=== PATIENT | female | born 1975 ===

== ENCOUNTER 2018-03-12 00:49 | Emergency (ER) | payer BC ==
[2018-03-12 01:28] VITALS: RESP 18
[2018-03-12 02:22] LABS: SQUAMOUS EPITHIAL 2 /hpf (0-5); URINE BACTERIA RARE (<OCC); URINE BILIRUBIN NEGATIVE (NEGATIVE); URINE CLARITY Clear (Clear); URINE COLOR Yellow (YELLOW); URINE GLUCOSE (UA) NORMAL (Normal); URINE LEUKOCYTE ESTERASE NEG Leu/uL (Negative); URINE PROTEIN 1+ mg/dL (NEGATIVE); URINE UROBILINOGEN NORMAL mg/dL (0.2-1.0)
[2018-03-12 02:28] LABS: BASO # 0.1 K/uL (0.0-0.2); BASO % 0.9 % (0.0-2.0); EOS % 0.4 % (0.0-4.0); HEMOGLOBIN 14.7 g/dL (11.0-16.0); LYMPH # 1.3 K/uL (1.0-4.3); LYMPH % 16.3 % (20.0-40.0); MEAN CELL VOLUME 87.2 fL (81.0-99.0); MEAN CORPUSCULAR HEMOGLOBIN 28.9 pg (27.0-31.0); MEAN CORPUSCULAR HGB CONC 33.1 g/dL (33.0-37.0); MEAN PLATELET VOLUME 8.3 fL (7.2-11.7); MONO # 0.4 K/uL (0.0-0.8); NEUT # 6.3 K/uL (1.8-7.0); NEUT % 77.4 % (50.0-75.0); NRBC % 0.1 % (0.0-2.0); RBC 5.09 Mil/uL (3.80-5.20); RED CELL DISTRIBUTION WIDTH 14.8 % (11.5-14.5); WHITE BLOOD COUNT 8.2 K/uL (4.8-10.8)
[2018-03-12 02:30] LABS: URINE BLOOD NEGATIVE (NEGATIVE)
[2018-03-12 02:38] LABS: BARBITURATES, UR NEGATIVE (NEGATIVE); BENZODIAZEPINES, UR NEGATIVE (NEGATIVE); OPIATES, UR NEGATIVE (NEGATIVE); PHENCYCLIDINE, UR NEGATIVE (NEGATIVE)
[2018-03-12 02:41] LABS: ALB/GLOB RATIO 1.3 (1.0-2.1); ALBUMIN 4.7 g/dL (3.5-5.0); ALT/SGPT 103 U/L (9-52); AST/SGOT 79 U/L (14-36); BLOOD UREA NITROGEN 7 mg/dL (7-17); CALCIUM 9.1 mg/dl (8.6-10.4); GFR NON-AFRICAN AMERICAN > 60
--- NOTE | 2018-03-12 03:21 | C.PDOC ---
History Of Present Illness 43 y/o female brought in by EMS for anxiety attack. Patient states she is an alcoholic and has been drinking heavily for 2 days. Since then she developed decreased appetite and has been feeling nauseous. Patient states she forced her self to vomit. She then vomited a lot twice and after, started to become concerned and anxious. She developed tingling in her hands, tightness in her chest, and her hands felt shaky. Patient then called EMS. On arrival to the ED she appears anxious but reports feeling better. Patient is also requesting detox. She denies any SI/HI. Denies any abdominal pain, chest pain, or SOB at this time. Time Seen by Provider: 03/12/18 01:31 Chief Complaint (Nursing): Anxiety History Per: Patient History/Exam Limitations: no limitations Onset/Duration Of Symptoms: Hrs Current Symptoms Are (Timing): Better Suicide/Self Injury Attempted (Context): None Modifying Factor(s): Alcohol Associated Symptoms: Anxiety. denies: Suicidal Thoughts, Suicidal Plan Additional History Per: EMS Past Medical History Reviewed: Historical Data, Nursing Documentation, Vital Signs Vital Signs: Last Vital Signs Temp 98.2 F 03/12/18 01:07 Pulse 87 03/12/18 01:07 Resp 18 03/12/18 01:07 BP 149/97 H 03/12/18 01:07 Pulse Ox 100 03/12/18 01:07 Surgical History: Family History: States: Unknown Family Hx - Social History Hx Alcohol Use: Yes Hx Substance Use: Yes (Marijuana) - Immunization History Hx Tetanus Toxoid Vaccination: No Hx Influenza Vaccination: No Hx Pneumococcal Vaccination: No Review Of Systems Constitutional: Negative for: Fever, Sweats Eyes: Negative for: Vision Change Cardiovascular: Negative for: Chest Pain, Palpitations Respiratory: Negative for: Shortness of Breath Gastrointestinal: Positive for: Nausea, Vomiting. Negative for: Abdominal Pain Neurological: Negative for: Weakness, Dizziness Psych: Positive for: Anxiety. Negative for: Suicidal ideation (or homicidal) Physical Exam - Physical Exam Appears: Non-toxic, No Acute Distress, Other (Appears anxious, crying) Skin: Warm, Dry Head: Atraumatic, Normacephalic Eye(s): bilateral: Normal Inspection, PERRL, EOMI Oral Mucosa: Moist Neck: Normal ROM Chest: Symmetrical Cardiovascular: Rhythm Regular, No Murmur Respiratory: Normal Breath Sounds, No Rales, No Rhonchi, No Wheezing Gastrointestinal/Abdominal: Soft, No Tenderness, No Distention Extremity: Normal ROM, Other (mild tremors of hands) Extremity: Bilateral: Atraumatic, Normal Color And Temperature Neurological/Psych: Oriented x3 ED Course And Treatment - Laboratory Results Result Diagrams: 03/12/18 02:26 03/12/18 02:26 Lab Results: Total Bilirubin 0.8 mg/dL (0.2-1.3) 03/12/18 02:26 AST 79 U/L (14-36) H 03/12/18 02:26 ALT 103 U/L (9-52) H 03/12/18 02:26 Alkaline Phosphatase 131 U/L (38-126) H 03/12/18 02:26 Total Protein 8.2 g/dL (6.3-8.3) 03/12/18 02:26 Albumin 4.7 g/dL (3.5-5.0) 03/12/18 02:26 Globulin 3.5 gm/dL (2.2-3.9) 03/12/18 02:26 Albumin/Globulin Ratio 1.3 (1.0-2.1) 03/12/18 02:26 Urine Color Yellow (YELLOW) 03/12/18 02:16 Urine Clarity Clear (Clear) 03/12/18 02:16 Urine pH 6.0 (5.0-8.0) 03/12/18 02:16 Ur Specific [place] 1.006 (1.003-1.030) 03/12/18 02:16 Urine Protein 1+ mg/dL (NEGATIVE) H 03/12/18 02:16 Urine Glucose (UA) Normal mg/dL (Normal) 03/12/18 02:16 Urine Ketones Trace mg/dL (NEGATIVE) 03/12/18 02:16 Urine Blood Negative (NEGATIVE) 03/12/18 02:16 Urine Nitrate Negative (NEGATIVE) 03/12/18 02:16 Urine Bilirubin Negative (NEGATIVE) 03/12/18 02:16 Urine Urobilinogen Normal mg/dL (0.2-1.0) 03/12/18 02:16 Ur Leukocyte Esterase Neg [place]/uL (Negative) 03/12/18 02:16 Urine WBC (Auto) 1 /hpf (0-5) 03/12/18 02:16 Urine RBC (Auto) 1 /hpf (0-3) 03/12/18 02:16 Ur Squamous Epith Cells 2 /hpf (0-5) 03/12/18 02:16 Urine Bacteria Rare (<OCC) 03/12/18 02:16 O2 Sat by Pulse Oximetry: 100 (RA) Pulse Ox Interpretation: Normal Progress Note: Labs ordered for medical clearance. Spoke to crisis counselor, who evaluated pt. Patient is medically cleared for detox. Pt wwas evaluated by Crisis, then decided to refuse inpatient detox prefers outpatient detox because of her job. On re-evaluation patient confirms her refusal for detox and is requesting to be discharged home. Patient is no longer anxious, denies nausea, abdominal pain or chest tightness. Pt appears less anxious and appears in NAD, no signs of acute alcohol withdrawal. Outpatient resources provided. Disposition Counseled Patient/Family Regarding: Diagnosis, Need For Followup, Rx Given - Disposition Referrals: [facility] [Outside] Disposition: HOME/ ROUTINE Disposition Time: 03:18 Condition: STABLE Additional Instructions: Please follow up with PMD Please set up appointment for outpatient detox as instructed by CRisis Take medications as directed Return to ER if worse Instructions: Alcohol Use - When Is Drinking a Problem?, Anxiety, Adult (DC) Forms: [employer] (Hebrew) - Clinical Impression Clinical Impression: Anxiety, Alcoholic gastritis, History of alcohol abuse - PA / [employer] / Resident Statement MD/DO has reviewed & agrees with the documentation as recorded. - Scribe Statement The provider has reviewed the documentation as recorded by the Bettyeibdion Skelton All medical record entries made by the Scribe were at my direction and personally dictated by me. I have reviewed the chart and agree that the record accurately reflects my personal performance of the history, physical exam, medical decision making, and the department course for this patient. I have also personally directed, reviewed, and agree with the discharge instructions and disposition.
[2018-03-12 03:46] VITALS: BP 150/90; PULSE 88; TEMP 98.3
[2018-03-12 03:54] VITALS: O2SAT 100
== END 2018-03-12 03:40 | disposition home or self-care (01) ==
LOC: C.ER 00:49
DX: F41.9 Anxiety disorder, unspecified (principal); K29.20 Alcoholic gastritis without bleeding
CPT/HCPCS: 80053; 81001; 83735; 84100; 85025; 99284; G0480

== ENCOUNTER 2018-03-12 04:06 | Inpatient (IN) | payer BC ==
--- NOTE | 2018-03-12 04:58 | C.PDOC ---
History Of Present Illness 43 yr old female w/ hx of etoh abuse, fibroidectomy, c section p/w anxiety. Pt notes that she had just been discharged from [facility] approximately an hour prior an was walking home when she felt extreme anxiety like something would happen to her at home. She denies any chest pain or shortness of breath but notes anxiety. No abdominal pain. No GI or complaints. No rash or fall. No other complaints Time Seen by Provider: 03/12/18 04:15 Chief Complaint (Nursing): Substance Abuse Past Medical History Vital Signs: Last Vital Signs Temp 97.7 F 03/12/18 04:30 Pulse 98 H 03/12/18 04:30 Resp 18 03/12/18 04:30 BP 149/93 H 03/12/18 04:30 Pulse Ox 98 03/12/18 04:30 Surgical History: Family History: States: Unknown Family Hx - Social History Hx Alcohol Use: Yes Hx Substance Use: Yes (Marijuana) - Immunization History Hx Tetanus Toxoid Vaccination: No Hx Influenza Vaccination: No Hx Pneumococcal Vaccination: No Review Of Systems Constitutional: Negative for: Fever, Chills, Weakness, Malaise Eyes: Negative for: Pain, Vision Change ENT: Negative for: Ear Pain, Ear Discharge, Nose Congestion, Mouth Swelling Cardiovascular: Negative for: Chest Pain, Palpitations Respiratory: Negative for: Cough, Shortness of Breath, SOB with Excertion Gastrointestinal: Positive for: Vomiting (earlier, now resolved). Negative for: Nausea, Melena Genitourinary: Negative for: Dysuria, Frequency Musculoskeletal: Negative for: Neck Pain Skin: Negative for: Rash, Lesions Neurological: Negative for: Weakness, Numbness, Confusion, Seizures Psych: Positive for: Anxiety Physical Exam - Physical Exam Appears: Well, Non-toxic Skin: Normal Color, Warm, Dry Head: Atraumatic, Normacephalic Eye(s): bilateral: Normal Inspection, PERRL, EOMI Nose: Normal Throat: Normal Neck: Normal, Supple, Other (no meningeal signs) Cardiovascular: Rhythm Regular Respiratory: Normal Breath Sounds Gastrointestinal/Abdominal: Normal Exam Back: Normal Inspection, No CVA Tenderness, No Vertebral Tenderness Extremity: Normal ROM, No Tenderness Neurological/Psych: Oriented x3, Normal Speech, Normal Cognition, Normal Cranial Nerves, No Cerebellar Signs, Normal Motor, Normal Sensation Gait: Steady Extremity: Right: No Drift, Left: No Drift, Upper: No Drift, Lower: No Drift ED Course And Treatment O2 Sat by Pulse Oximetry: 98 Medical Decision Making Medical Decision Makin yr old female p/w anxiety. No SI or HI. Previously seen here, medically cleared for detox and pt d/c after refusing detox. Pt states she is feeling anxious, and would like to be evaluated for it. She denies any current nausea or vomiting. She also notes minor parathesias to b/l fingertips but no FND. Neuro exam unremarkable. Likely anxiety. Medically clear Pending crisis eval. 1748 per crisis we are to admit to Dr. Scherer for anxiety pt in NAD, agreeable to plan no signs of withdrawal. abd remains non-ttp. No cp or sob. Disposition - Disposition Disposition Time: 05:48 Condition: GOOD Forms: [facility] (Kyrgyz) - Clinical Impression Clinical Impression: Anxiety
--- NOTE | 2018-03-12 07:59 | PCM.BM ---
<Vika Thomas - Last Filed: 03/12/18 08:02> Treatment Plan Problems - Problems identified on initial assessmt thought alteration Date Initiated: 03/12/18 Time Initiated: 06:30 Date resolved: 03/12/18 Assessment reference: NA Status: Active fear to the unknown Date Initiated: 03/12/18 Time Initiated: 06:30 Date resolved: 03/12/18 Assessment reference: NA Status: Active stress related to work Date Initiated: 03/12/18 Time Initiated: 06:30 Date resolved: 03/12/18 Assessment reference: NA Status: Active Treatment assets and liabiliti Patient Assests: cooperative, resourceful, ADL independent - Milieu Protocol Maintain good personal hygiene: daily Encourage regular showers, daily Remind patient to perform daily oral care, daily Assist patient to perform ADL's Maintain personal safety: every shift Educate patient to report safety concerns to staff, every shift Monitor environment for contraband/sharps Medication safety: Monitor for expected outcome, potential side effects: every shift, Assess barriers to learning: every shift, Assess readiness for medication education: every shift <Milady Francisco - Last Filed: 03/12/18 11:58> Treatment Plan Problems - Problems identified on initial assessmt thought alteration Date Initiated: 03/12/18 Time Initiated: 06:30 Date resolved: 03/12/18 Assessment reference: NA Status: Active fear to the unknown Date Initiated: 03/12/18 Time Initiated: 06:30 Date resolved: 03/12/18 Assessment reference: NA Status: Active stress related to work Date Initiated: 03/12/18 Time Initiated: 06:30 Date resolved: 03/12/18 Assessment reference: NA Status: Active stress realted to work Date Initiated: 03/12/18 Time Initiated: 06:30 Date resolved: 03/12/18 Assessment reference: NA Status: Active Family Contact Family involvement: Famliy/SO not involved - Goals for Treatment Patient goals for treatment: "I need a therapist." Discharge/Continuing Care - Education Needs Education Needs: Patient Medication, Patient Coping Skills - Discharge Discharge Criteria: Tolerates medication w/o severe side effects, Reduction of target symptoms Discharge to:: Home - Treatment Team Participation Discussed with Family/SO: No Was Patient/Family/SO present at Treatment Team Meeting: Yes
[2018-03-12 09:30] VITALS: O2SAT 98
--- NOTE | 2018-03-12 09:31 | PCM.PSYCH ---
Initial Psychiatric Evaluation - Initial Psychiatric Evaluation Type of Admission: Voluntary Legal Status: Capacity Chief Complaint (in patient's own words): I was feeling increasingly anxious and depressed. 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 with depressed mood and panic attacks. Patient denies any past history of any inpatient psychiatric hospitalizations. She also denies any past history of any follow-up with any psychiatrist. However she reports history of follow-up with a therapist during her school years for anxiety and depression. Patient remained a poor historian. She was superficially cooperative but guarded about the details. She was depressed, tearful and anxious throughout the interview. She reports that her 15 years old son is abusing drugs and she is worried about him. She also reports that she had an altercation with him and he texted her to go and kill yourself, that made her increasingly depressed and anxious and she consumed a lot of drinks and came to the hospital, she developed passive suicidal ideation that she can do something crazy. Patient reports a long history of drinking. She reports that she relapsed almost 6 months ago. Besides has son, she also reports other stressors, including, issues at work, recent migration from [place], and drinking at the [employer] house friend's green party, which can put her in trouble. Patient reports that she got drunk at a "house friends green party, whosent her to the ED. However she was discharged from the ED, she went back but had a severe panic attack, so she came back to the ED. She reported increasingly depressed and anxious mood, at times feelings of hopelessness and helplessness, poor sleep and poor appetite. She also reports racing thoughts, flight of ideas, worsening of irritability and agitation. She appears somewhat paranoid at people are judging her however she denies any auditory hallucinations. She reports some withdrawal symptoms from drinking including sweating, headaches, anxiety however she denies any other drugs. Past medical history HTN Past Psychiatric History - Past Psychiatric History Previous Treatment History: None Pertinent Medical Hx (Current Medical&Sleep Prob, Allergies): Allergies Allergy/AdvReac Type Severity Reaction Status Date / Time No Known Allergies Allergy Verified 03/12/18 04:45 No Known Home Med 03/12/18 Review of Systems - Review of Systems All systems: reviewed and no additional remarkable complaints except - Psychiatric Psychiatric: Anxiety, Depression, Irritability, Panic Attacks, Suicidal Ideation Mental Status Examination - Personal Presentation Personal Presentation: Looks stated age - Affect Affect: Constricted, Depressed - Motor Activity Motor Activity: Psychomotor Agitation - Reliability in Providing Information Reliability in Providing Information: Poor, due to altered mood - Speech Speech: Organized - Mood Mood: Depressed, Anxious - Formal Thought Process Formal Thought Process: No Impairment - Obsessions/Compulsions Obsessions: No Compulsions: No - Cognitive Functions Orientation: Person, Place, Situation, Time Sensorium: Alert Attention/Concentration: Attentive Abstract Thinking: Palmer Estimate of Intelligence: Below average Judgement: Imparied, as evidence by: Poor judgement, Imparied, as evidence by: Lack of insight into illness - Risk Risk: Withdrawal, Diminished functioning - Limitations Limitations: Living alone DSM 5 DX - DSM 5 DSM 5 Diagnosis: Bipolar disorder mixed severe with psychotic features Alcohol use disorder severe Alcohol withdrawal - Recommended/Plan of Treatment Treatment Recommendations and Plan of Treatment: Bipolar disorder mixed severe with psychotic features Alcohol use disorder severe Alcohol withdrawal CBT Psychoeducation Supportive therapy and group therapy Trazodone for insomnia Neurontin for augmentation Ativan for alcohol withdrawal symptoms [place] as a mood stabilizer - Smoking Cessation Smoking Cessation Initiated: No
--- NOTE | 2018-03-13 12:36 | PCM.PYCHPN ---
Psychiatric Progress Note - Psychiatric Progress Note Patient seen today, length of contact: 15 min Patient Chief Complaint: I was feeling increasingly anxious and depressed. Problems Identified/Issues Discussed: Patient was seen and evaluated, chart reviewed and discussed the staff. Patient reports improvement in her mood and reports some improvement in the feelings of hopelessness and helplessness. She also reports some improvement in the racing thoughts, irritability and agitation. She denies any auditory or visual hallucinations. She is taking medication but denies any side effects Symptoms are improving gradually to stay longer for further stabilization. Supportive therapy was given. Medication Change: Yes Medical Record Reviewed: Yes Mental Status Examination - Cognitive Function Orientation: Person, Place, Situation, Time Memory: Intact Attention: WNL Concentration: Poor Association: WNL Fund of Knowledge: Poor - Mood Mood: Depressed, Anxious - Affect Affect: Constricted, Depressed - Formal Thought Process Formal Thought Process: No Impairment - Suicidal Ideation Suicidal Ideation: No - Homicidal Ideation Homicidal Ideation: No Goal/Treatment Plan - Goal/Treatment Plan Need for Continued Stay: Remain at risks for inpatient hospitalization Progress Toward Problem(s) and Goals/Treatment Plan: Bipolar disorder mixed severe with psychotic features Alcohol use disorder severe Alcohol withdrawal CBT Psychoeducation Supportive therapy and group therapy Trazodone for insomnia Neurontin for augmentation Ativan for alcohol withdrawal symptoms [place] as a mood stabilizer - Smoking Cessation Smoking Cessation Initiated: No
[2018-03-14 06:34] VITALS: BP 118/76; PULSE 78; RESP 16; TEMP 97.5
--- NOTE | 2018-03-14 10:14 | PCM.PYCHDC ---
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 Patient denies any past history of any inpatient psychiatric hospitalizations. She also denies any past history of any follow-up with any psychiatrist. However she reports history of follow-up with a therapist during her school years for anxiety and depression. Patient remained a poor historian. She was superficially cooperative but guarded about the details. She was depressed, tearful and anxious throughout the interview. She reports that her 15 years old son is abusing drugs and she is worried about him. She also reports that she had an altercation with him and he texted her to go and kill yourself, that made her increasingly depressed and anxious and she consumed a lot of drinks and came to the hospital, she developed passive suicidal ideation that she can do something crazy. Patient reports a long history of drinking. She reports that she relapsed almost 6 months ago. Besides has son, she also reports other stressors, including, issues at work, recent migration from [place], and drinking at the [employer] friend[employer], which can put her in trouble. Patient reports that she got drunk at a "[employer] friends democrat, whosent her to the ED. However she was discharged from the ED, she went back but had a severe panic attack, so she came back to the ED. She reported increasingly depressed and anxious mood, at times feelings of hopelessness and helplessness, poor sleep and poor appetite. She also reports racing thoughts, flight of ideas, worsening of irritability and agitation. She appears somewhat paranoid at people are judging her however she denies any auditory hallucinations. She reports some withdrawal symptoms from drinking including sweating, headaches, anxiety however she denies any other drugs. Consultations:: List each consultation separately and include: 1. Reason for request. 2. Findings. 3. Follow-up Summary of Hospital Course include:: 1. Description of specific treatment plan utilized for patients during their course of treatmen. 2. Summarize the time- course for resolution of acute symptoms and/or regressed behaviors. 3. Describe issues identified and worked on during hospitalization. 4. Describe medication utilized. 5. Describe medical problems identified and treated. 6. 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 Patient denies any past history of any inpatient psychiatric hospitalizations. She also denies any past history of any follow-up with any psychiatrist. However she reports history of follow-up with a therapist during her school years for anxiety and depression. Patient remained a poor historian. She was superficially cooperative but guarded about the details. She was depressed, tearful and anxious throughout the interview. She reports that her 15 years old son is abusing drugs and she is worried about him. She also reports that she had an altercation with him and he texted her to go and kill yourself, that made her increasingly depressed and anxious and she consumed a lot of drinks and came to the hospital, she developed passive suicidal ideation that she can do something crazy. Patient reports a long history of drinking. She reports that she relapsed almost 6 months ago. Besides has son, she also reports other stressors, including, issues at work, recent migration from [place], and drinking at the [employer] friend[employer] democr[employer], which can put her in trouble. Patient reports that she got drunk at a "[employer] friends democr[employer], whosent her to the ED. However she was discharged from the ED, she went back but had a severe panic attack, so she came back to the ED. She reported increasingly depressed and anxious mood, at times feelings of hopelessness and helplessness, poor sleep and poor appetite. She also reports racing thoughts, flight of ideas, worsening of irritability and agitation. She appears somewhat paranoid at people are judging her however she denies any auditory hallucinations. She reports some withdrawal symptoms from drinking including sweating, headaches, anxiety however she denies any other drugs. Past medical history HTN - Final Diagnosis (DSM 5) Condition upon Discharge: GOOD DSM 5: Bipolar disorder mixed severe with psychotic features Alcohol use disorder severe Alcohol withdrawal Disposition: HOME/ ROUTINE Follow-up Treatment Plan: Bipolar disorder mixed severe with psychotic features Alcohol use disorder severe Alcohol withdrawal CBT Psychoeducation Supportive therapy and group therapy Trazodone for insomnia Neurontin for augmentation Ativan for alcohol withdrawal symptoms [place] as a mood stabilizer Prescriptions/Medication Reconciliation: [place] Carbonate [[place] Carbonate 300MG] 300 mg PO TID #90 cap traZODone [Desyrel] 50 mg PO HS #30 tab
[2018-03-15] MEDS ORDERED: Pneumococcal 23-Valent Vaccine IM ONE (10:00)
== END 2018-03-14 11:05 | disposition home or self-care (01) | DRG 885 ==
LOC: C.ER 04:06 → C.5E 05:49
PROVIDERS: ADMIT Psychiatry & Neurology Psychiatry; ATTEND Psychiatry & Neurology Psychiatry
PROC: GZ3ZZZZ Medication Management (ICD-10-PCS; principal; 2018-03-12)
PROC: HZ88ZZZ Medication Management for Substance Abuse Treatment, Psychiatric Medication (ICD-10-PCS; 2018-03-12)
PROC: GZHZZZZ Group Psychotherapy (ICD-10-PCS; 2018-03-12)
PROC: GZ56ZZZ Individual Psychotherapy, Supportive (ICD-10-PCS; 2018-03-12)
DX: F31.64 Bipolar disorder, current episode mixed, severe, with psychotic features (principal); F10.239 Alcohol dependence with withdrawal, unspecified; R45.851 Suicidal ideations; F41.0 Panic disorder [episodic paroxysmal anxiety]; G47.00 Insomnia, unspecified; F17.210 Nicotine dependence, cigarettes, uncomplicated; I10 Essential (primary) hypertension